=== PATIENT | female | born 1960 | race Caucasian/White ===

== ENCOUNTER 2018-05-09 17:43 | Emergency (ER) | payer SELFPAY ==
[2018-05-09] MEDS ORDERED: Sodium Chloride 0.9% 10 ML Syringe FLUSH PRN (18:15)
[2018-05-09] MEDS ORDERED: Sodium Chloride 0.9% 1,000 ML IV ONE (18:15)
[2018-05-09] MEDS ORDERED: Sodium Chloride 0.9% 2.5 ML Syringe FLUSH PRN (18:15)
[2018-05-09] MEDS ORDERED: Ketorolac 30 MG/ML SDV IVPUSH ONE (18:15)
--- NOTE | 2018-05-09 18:21 | EDM.PDOC ---
<Teri Viera - Last Filed: 05/09/18 18:36> ED HPI GENERAL MEDICAL PROBLEM - General Chief Complaint: Abdominal Pain Stated Complaint: PAIN IN THE APENDIX AREA Time Seen by Provider: 05/09/18 18:06 - History of Present Illness INITIAL COMMENTS - FREE TEXT/NARRATIVE: HISTORY AND PHYSICAL: History of present illness: The patient is a 57-year-old female who presents with sudden onset of right lower quadrant pain that started about 2 or 3 clock this morning. Patient tells me she had a normal day yesterday without any trauma and ate fine had no fevers chills nausea vomiting and had a normal bowel movement. Patient stays up late at night and was not asleep at the time and then felt a sudden sharp pain in her right lower quadrant. Does not radiate and is not associated with any other symptoms such as anorexia fever chills nausea vomiting diarrhea dysuria frequency or flank pain. The patient says that she had a surgical procedure years ago so that she would not get and she is currently postmenopausal. She has never had any ovarian or gynecologic surgeries or problems in the past. The patient had her gallbladder removed and says that because she had the pain all day today and it's sharp in character her friends and family convinced her to come here for evaluation of her appendix. She is very concerned because her father almost from it. The patient ate all of her meals today without any issues and had no fevers today. She currently is not nauseated and complains only of the pain is localized to the right lower quadrant. She took no [id number] medications for pain. Patient has not had sexual intercourse recently. Review of systems: As per history of present illness and below otherwise all systems reviewed and negative. Past medical history: As per history of present illness and as reviewed below otherwise noncontributory. Surgical history: As per history of present illness and as reviewed below otherwise noncontributory. Social history: No reported history of drug or alcohol abuse. Family history: As per history of present illness and as reviewed below otherwise noncontributory. Physical exam: General: Well-developed well-nourished female who is nontoxic and moves easily in the ED. Vital signs are reviewed by me. HEENT: Atraumatic, normocephalic, negative for conjunctival pallor or scleral icterus, mucous membranes moist, throat clear, neck supple, nontender, trachea midline. Lungs: Clear to auscultation, breath sounds equal bilaterally, chest nontender. Heart: S1S2, regular rate and rhythm no overt murmurs Abdomen: Soft, nondistended, minimally tender on deep palpation in the right lower quadrant without rebound or guarding. Bowel sounds are hypoactive Negative for costovertebral tenderness. Pelvis: Stable nontender. Genitourinary: Deferred. Rectal: Deferred. Extremities: Atraumatic, negative for cords or calf pain. Neurovascular unremarkable. Neuro: Awake, alert, oriented. Cranial nerves II through XII unremarkable. Cerebellum unremarkable. Motor and sensory unremarkable throughout. Exam nonfocal. Diagnostics: CBC CMP UA CT scan of the abdomen and pelvis Therapeutics: IV fluids Toradol Case is endorsed to Dr. Hurtado at 7 PM to follow-up testing and disposition the patient pending those results. Impression: Right lower abdominal pain Definitive disposition and diagnosis as appropriate pending reevaluation and review of above. RLQ abdomen Pain Score (Numeric/FACES): 7 - Related Data Allergies Allergy/AdvReac Type Severity Reaction Status Date / Time No Known Allergies Allergy Verified 05/09/18 18:32 Home Meds: Home Meds . [No Known Home Meds] 05/09/18 [History] ED ROS GENERAL - Review of Systems Review Of Systems: ROS reveals no pertinent complaints other than HPI. ED EXAM, GENERAL - Physical Exam Exam: See Below (See dictation) Course - Vital Signs Last Recorded V/S: Last Vital Signs Temp 97.9 F 05/09/18 17:43 Pulse 72 05/09/18 17:43 Resp 18 05/09/18 17:43 BP 131/92 H 05/09/18 17:43 Pulse Ox 95 05/09/18 17:43 - Orders/Labs/Meds Orders: Active Orders 24 hr Category Date Time Status Abdomen Pelvis w Cont [CT] Stat Exams 05/09/18 18:14 Taken UA W/MICROSCOPIC [URIN] Stat Lab 05/09/18 19:26 Ordered Sodium Chloride 0.9% [Saline Flush] Med 05/09/18 18:15 Active 10 ml FLUSH ASDIRECTED PRN Sodium Chloride 0.9% [Saline Flush] Med 05/09/18 18:15 Active 2.5 ml FLUSH ASDIRECTED PRN Saline Lock Insert [OM.PC] Stat Ot 05/09/18 18:14 Ordered Medication Orders Sodium Chloride (Saline Flush) 10 ml FLUSH ASDIRECTED PRN PRN Reason: Keep Vein Open Sodium Chloride (Saline Flush) 2.5 ml FLUSH ASDIRECTED PRN PRN Reason: Keep Vein Open Labs: Laboratory Tests 05/09/18 05/09/18 05/09/18 Range/Units 18:22 18:22 19:26 WBC 5.90 (4.0-11.0) K/uL RBC 4.10 L (4.30-5.90) M/uL Hgb 12.9 (12.0-16.0) g/dL Hct 37.6 (36.0-46.0) % MCV 91.7 (80.0-98.0) fL MCH 31.5 (27.0-32.0) pg MCHC 34.3 (31.0-37.0) g/dL RDW Std Deviation 41.5 (28.0-62.0) fl RDW Coeff of Hannah 12 (11.0-15.0) % Plt Count 247 (150-400) K/uL MPV 9.80 (7.40-12.00) fL Neut % (Auto) 44.1 L (48.0-80.0) % Lymph % (Auto) 44.9 H (16.0-40.0) % [place] % (Auto) 7.6 (0.0-15.0) % Eos % (Auto) 2.9 (0.0-7.0) % Baso % (Auto) 0.5 (0.0-1.5) % Neut # (Auto) 2.6 (1.4-5.7) K/uL Lymph # (Auto) 2.7 H (0.6-2.4) K/uL [place] # (Auto) 0.5 (0.0-0.8) K/uL Eos # (Auto) 0.2 (0.0-0.7) K/uL Baso # (Auto) 0.0 (0.0-0.1) K/uL Nucleated RBC % 0.0 /100WBC Nucleated RBCs # 0 K/uL Sodium 141 (136-145) mmol/L Potassium 3.7 (3.5-5.1) mmol/L Chloride 105 (98-107) mmol/L Carbon Dioxide 28.1 (21.0-32.0) mmol/L BUN 17 (7.0-18.0) mg/dL Creatinine 0.7 (0.6-1.0) mg/dL Est Cr Clr Drug Dosing 70.13 mL/min Estimated GFR (MDRD) > 60.0 ml/min Glucose 113 H (74-106) mg/dL Calcium 9.0 (8.5-10.1) mg/dL Total Bilirubin 0.2 (0.2-1.0) mg/dL AST 9 L (15-37) IU/L ALT 22 (14-63) IU/L Alkaline Phosphatase 67 (46-116) U/L Total Protein 6.6 (6.4-8.2) g/dL Albumin 3.5 (3.4-5.0) g/dL Globulin 3.1 (2.0-3.5) g/dL Albumin/Globulin Ratio 1.1 L (1.3-2.8) Urine Color YELLOW Urine Appearance CLEAR Urine pH 7.0 (5.0-8.0) Ur Specific [place] 1.010 (1.001-1.035) Urine Protein NEGATIVE (NEGATIVE) mg/dL Urine Glucose (UA) NEGATIVE (NEGATIVE) mg/dL Urine Ketones NEGATIVE (NEGATIVE) mg/dL Urine Occult Blood NEGATIVE (NEGATIVE) Urine Nitrite NEGATIVE (NEGATIVE) Urine Bilirubin NEGATIVE (NEGATIVE) Urine Urobilinogen 0.2 (<2.0) EU/dL Ur Leukocyte Esterase TRACE (NEGATIVE) Urine RBC 0-2 (0-2/HPF) Urine WBC 1-3 (0-5/HPF) Ur Epithelial Cells FEW (NONE-FEW) Amorphous Sediment LIGHT (NEGATIVE) Urine Bacteria FEW (NEGATIVE) Meds: Medications Generic Name Dose Route Start Last Admin Trade Name Freq PRN Reason Stop Dose Admin Sodium Chloride 10 ml 05/09/18 18:15 Saline Flush FLUSH ASDIRECTED PRN Keep Vein Open Sodium Chloride 2.5 ml 05/09/18 18:15 Saline Flush FLUSH ASDIRECTED PRN Keep Vein Open Discontinued Medications Generic Name Dose Route Start Last Admin Trade Name Freq PRN Reason Stop Dose Admin Sodium Chloride 1,000 mls @ 999 mls/hr 05/09/18 18:15 05/09/18 18:28 Normal Saline IV 05/09/18 19:15 999 mls/hr STAT ONE Administration Iopamidol 100 ml 05/09/18 19:27 05/09/18 19:28 Isovue Multipack-370 (76%) IVPUSH 05/09/18 19:28 100 ml ONETIME STA Administration Ketorolac Tromethamine 30 mg 05/09/18 18:15 05/09/18 18:28 Toradol IVPUSH 05/09/18 18:16 30 mg ONETIME ONE Administration Departure - Departure Disposition: Home, Self-Care 01 Clinical Impression: Acute cystitis Qualifiers: Hematuria presence: without hematuria Qualified Code(s): N30.00 - Acute cystitis without hematuria - Discharge Information Referrals: PCP,None [Primary Care Provider] - Forms: ED Department Discharge Additional Instructions: My general discharge The following information is given to patients seen in the emergency department who are being discharged to home. This information is to outline your options for follow-up care. We provide all patients seen in our emergency department with a follow-up referral. The need for follow-up, as well as the timing and circumstances, are variable depending upon the specifics of your emergency department visit. If you don't have a primary care physician on staff, we will provide you with a referral. We always advise you to contact your personal physician following an emergency department visit to inform them of the circumstance of the visit and for follow-up with them and/or the need for any referrals to a consulting specialist. The emergency department will also refer you to a specialist when appropriate. This referral assures that you have the opportunity for follow-up care with a specialist. All of these measure are taken in an effort to provide you with optimal care, which includes your follow-up. Under all circumstances we always encourage you to contact your private physician who remains a resource for coordinating your care. When calling for follow-up care, please make the office aware that this follow-up is from your recent emergency room visit. If for any reason you are refused follow-up, please contact the [facility] at and asked to speak to the emergency department charge nurse. [facility] [address] [place] [id number] [facility] [address] [place] [address] [facility] - [facility] [address] [place] [address] Please follow-up with your primary care provider. Take medication as prescribed for your acute bladder infection. Return to emergency department if any new or worsening symptoms. <Jefe Hurtado - Last Filed: 05/09/18 19:52> ED HPI GENERAL MEDICAL PROBLEM - History of Present Illness INITIAL COMMENTS - FREE TEXT/NARRATIVE: Dr. Hurtado taking over patient care at 1900. I have throughly been briefed on patient by Dr. Viera and have reviewed all labs and studies. I have personally examined patient and agree with above. 1900: CBC, CMP unremarkable 2149: CT abd/pelvis unremarkable UA somewhat suggestive of acute cystitis Secondary to urinalysis we did treat patient for acute cystitis. She was given a prescription for Bactrim. She was instructed to follow-up with her primary care provider and return to emergency department if she had any new or worsening symptoms. ED ROS GENERAL - Review of Systems Review Of Systems: ROS reveals no pertinent complaints other than HPI. ED EXAM, GENERAL - Physical Exam Exam: See Below Departure - Departure Time of Disposition: 19:51 Condition: Good
[2018-05-09 19:00] LABS: CHLORIDE,CL 105 mmol/L (98-107); SODIUM,NA 141 mmol/L (136-145)
[2018-05-09] MEDS ORDERED: Iopamidol 755 MG/ML 500 ML Multipack Bottle IVPUSH STA (19:27)
--- NOTE | 2018-05-10 09:23 | CT ---
EXAM DATE: 05/09/18 PATIENT'S AGE: 57 Patient: JYOTI CHAVEZ Facility: [place], [place] Site . Site : [id number] Study: CT Abdomen/Pelvis [id number]/29/2018 7:26:00 PM Ordering Physician: Maximiliano Williamson Final Report: INDICATION: Abdominal pain. CT ABDOMEN AND PELVIS WITH CONTRAST TECHNIQUE: Multidetector CT imaging was performed through the abdomen and pelvis following intravenous contrast administration using 100 mL Isovue 370. Coronal and sagittal reconstructions were generated. COMPARISON: None. FINDINGS: Lower chest: Minimal basilar lung atelectasis or scarring. Liver: Within normal limits. Gallbladder and bile ducts: Status post cholecystectomy. No biliary dilation identified. Pancreas: Unremarkable. Spleen: Normal. Adrenals: No nodules or masses. Kidneys, ureters, and urinary bladder: No renal masses or hydronephrosis. No definite urinary tract stones. No bladder mass or definite wall thickening. Gastrointestinal tract: Normal caliber bowel without wall thickening. The appendix is normal. Vascular structures: Very mild aortoiliac atherosclerotic calcifications. Peritoneum: No free air, abscess, or significant free fluid. Lymph nodes: No pathologically enlarged nodes identified. Reproductive organs: Bilateral adnexal surgical clips. No pelvic masses. Bones: Mild spinal degenerative changes. IMPRESSION: 1. No acute abnormality identified. No cause for the patient`s symptoms is demonstrated. 2. Nonacute findings as detailed above. SKYLAR HOLLY MD [employer] Dictated by Bao Holly MD @ 05/09/2018 7:44:31 PM Dictated by: Bao Holly MD @ 05/09/2018 19:44:57 (Electronic Signature) Report Signed by Proxy. [facility]
== END 2018-05-09 20:13 | disposition home or self-care (01) ==
LOC: MW.ED 17:43
DX: N30.00 Acute cystitis without hematuria (principal)
CPT/HCPCS: 36415; 74177; 80053; 81001; 85025; 96361; 96374; 99284; J1885; J7040; Q9967